=== PATIENT | female | born 1970 | race Caucasian/White ===

== ENCOUNTER 2017-12-30 06:10 | Observation (INO) ==
[2017-12-30 06:48] LABS: Basophils # 0.1 K/mcL (0.0-0.2); Basophils % 1.3 %; Eosinophils # 0.3 K/mcL (0.0-0.6); Eosinophils % 4.2 %; Hematocrit 39.7 % (35.3-44.9); Hemoglobin 13.2 g/dL (11.5-15.4); Immature Granulocytes % 0.3 % (0-4); Lymphocytes # 1.8 K/mcL (0.6-4.6); Lymphocytes % 30.6 %; Mean Corpuscular HGB Conc 33.2 g/dL (31.6-35.5); Mean Corpuscular Hemoglobin 31.8 pg (28.0-33.3); Mean Corpuscular Volume 95.7 fL (83.0-100.0); Mean Platelet Volume 9.1 fL (9.4-12.4); Monocytes # 0.6 K/mcL (0.0-1.3); Monocytes % 9.4 %; Neutrophils # 3.2 K/mcL (1.6-8.9); Platelet Count 219 K/mcL (140-400); Red Blood Count 4.15 M/mcL (3.82-4.97); Red Cell Distribution Width 12.7 % (11.5-14.5); Segmented Neutrophils % 54.2 %
[2017-12-30 06:58] LABS: INR 0.9; Prothrombin Time 10.1 Seconds (9.4-12.1)
[2017-12-30 07:01] LABS: Activated Partial Thrombo Time 28.8 Seconds (26.0-36.0)
[2017-12-30] MEDS ORDERED: Aspirin 81 MG TAB.CHEW PO ONE (07:02)
[2017-12-30] MEDS ORDERED: Nitroglycerin 0.4 MG TAB.SUBL SL PRN ×2 (07:02→10:28)
[2017-12-30 07:12] LABS: Troponin I < 0.03 ng/mL (< 0.04)
[2017-12-30 07:13] LABS: BUN/Creatinine Ratio 25 (6-26); Blood Urea Nitrogen 21 mg/dL (6-20); Calcium 8.7 mg/dL (8.6-10.3); Carbon Dioxide 22 mEq/L (23-29); Chloride 115 mEq/L (98-107); Glucose 110 mg/dL (70-105); Osmolality,Calculated 296 (280-300); Potassium 3.8 mEq/L (3.5-5.1); Sodium 141 mEq/L (136-145); eGFR For African Americans > 60 (> 60); eGFR For Non-African Americans > 60 (> 60)
--- NOTE | 2017-12-30 07:27 | Emergency Department Note ---
START Narrative - START START: I examined this patient and my medical decision-making was reviewed with the Resident Physician. I agree with the documented findings, disposition and treatment plan as described except to the extent set forth below. 47-year-old female presented to the emergency room for chest pain that woke her up from sleep about 2 hours ago. [place] slightly dizzy. Positive smoking. Labs thus far negative. She has no cough or sputum production. Chest x-ray shows possible atelectasis in the left lung base. She has no pneumonia symptoms. Plan to recheck a second enzyme. We will give option of admission for observation. EKG unremarkable
--- NOTE | 2017-12-30 07:40 | Emergency Department Note ---
Disposition Clinical Impression: Chest pain Qualifiers: Chest pain type: unspecified Qualified Code(s): R07.9 - Chest pain, unspecified Disposition: Admitted As Inpatient Condition: Good Referrals: Biju Arana MD [Primary Care Provider] - Forms: ED Satisfaction Letter Time of Disposition: 08:08 General Adult HPI - General Chief complaint: ED Chest Pain Stated complaint: cp/sob/dizzy Time Seen by Provider: 12/30/17 07:02 Source: patient, family Mode of arrival: ambulatory Limitations: no limitations Nursing Notes Reviewed: Yes Vital Signs Reviewed: Yes - History of Present Illness HPI Narrative: 47-year-old female with past medical history of migraines presenting to the emergency Department chief complaint of chest pain. Patient states approximately 3 hours ago she had substernal chest pain that radiated up her neck and into her left arm. It made her diaphoretic but denies nausea or vomiting. Patient has significant family history with early cardiac and her mother in her late 40s and father having an ID in his mid 50s. Patient denies having a cardiac workup in the past 10 years. She states she had a stress test approximately 15 or more years ago. Denies any following with cardiology. She denies taking anything at home for this. She denies any infectious signs or symptoms at this time. Denies fever, vomiting, diarrhea or abdominal pain. Pain Scale: 7 - Related Data Home Medications Medication Instructions Recorded Confirmed No Known Home Drugs 12/30/17 12/30/17 Allergies Allergy/AdvReac Type Severity Reaction Status Date / Time No Known Allergies Allergy Verified 12/30/17 07:34 All systems ED: reviewed and negative except as stated. Cardiovascular: Reports: chest pain Musculoskeletal: Reports: neck pain Past Medical History - Past Medical History Attestation: Yes The following information was validated with the patient. Medical history: Reports: migraine Psychiatric history: Reports: no psych history FEED HANDLER history: Reports: no FEED HANDLER history - Social History Smoking Status: Current every day smoker Smokeless Tobacco Status: No Alcohol use: Reports: rarely Drug use: Reports: none Physical Exam - General Limitations: no limitations General appearance: alert, in no apparent distress - Head Head exam: atraumatic, normocephalic, normal inspection - Eye Eye exam: Present: normal appearance. Absent: scleral icterus, conjunctival injection - ENT ENT exam: normal exam, mucous membranes moist - Neck Neck exam: Present: normal inspection, full ROM. Absent: tenderness, meningismus - Chest Chest inspection: Present: normal inspection, symmetric chest wall rise. Absent : tenderness, rash - Respiratory Respiratory exam: Present: normal lung sounds bilaterally. Absent: respiratory distress, wheezes - Cardiovascular Cardiovascular exam: Present: regular rate, normal rhythm, normal heart sounds - Abdominal Exam Abdominal exam: Present: soft, Non-Tender. Absent: distention, guarding, rebound - Extremities Exam Extremities exam: Present: normal inspection, full ROM - Neurological Exam Neurological exam: Present: alert, oriented X3 - Psychiatric Psychiatric exam: Present: normal affect, normal mood - Skin Skin exam: Present: warm, intact Course Course Narrative: 47-year-old female with no significant past medical history presenting for chest pain radiating up into her left neck. The patient has significant family history of cardiac disease. Patient also smokes and is hypertensive in the room. She states she does not have high cholesterol but also does not see a physician often. Patient is alert and oriented 3 in the room. Hypertensive but otherwise stable vital signs. We will perform a chest pain workup including troponin, chest x-ray, EKG and basic labs. Disposition pending these results. Patient agrees with this plan. - Reevaluation(s) Reevaluation #1: All patient's lab work has resulted and is within normal limits. Due to patient 's significant past medical history and history of present illness event to admit the patient at this time for chest pain workup. Patient is alert and oriented 3 and remained stable vital signs. Nitroglycerin did relieve her chest pain. Patient was given aspirin. I spoke with the admitting hospitalist Dr. Delacruz who agrees to accept the patient at this time. Patient agrees with this plan. Vital Signs Temperature 97.9 F 12/30/17 06:12 Pulse Rate 95 12/30/17 06:12 Respiratory Rate 18 12/30/17 06:12 Blood Pressure 174/92 12/30/17 06:12 O2 Sat by Pulse Oximetry 99 12/30/17 06:12 Temperature 97.9 F 12/30/17 06:12 Pulse Rate 82 12/30/17 07:28 Respiratory Rate 16 12/30/17 07:28 Blood Pressure 159/103 12/30/17 07:28 O2 Sat by Pulse Oximetry 98 12/30/17 07:28 Oxygen Delivery Oxygen Delivery Room Air Medical Decision Making - Lab Data Result diagrams: 12/30/17 06:41 12/30/17 06:41 Lab Results 12/30/17 12/30/17 12/30/17 Range/Units 06:41 06:41 06:41 WBC 6.0 (4.3-11.1) K/mcL RBC 4.15 (3.82-4.97) M/mcL Hgb 13.2 (11.5-15.4) g/dL Hct 39.7 (35.3-44.9) % MCV 95.7 (83.0-100.0) fL MCH 31.8 (28.0-33.3) pg MCHC 33.2 (31.6-35.5) g/dL RDW 12.7 (11.5-14.5) % Plt Count 219 (140-400) K/mcL MPV 9.1 L (9.4-12.4) fL Immature Gran % 0.3 (0-4) % Seg Neutrophils % 54.2 % Lymphocytes % 30.6 % Monocytes % 9.4 % Eosinophils % 4.2 % Basophils % 1.3 % Neutrophils # 3.2 (1.6-8.9) K/mcL Lymphocytes # 1.8 (0.6-4.6) K/mcL Monocytes # 0.6 (0.0-1.3) K/mcL Eosinophils # 0.3 (0.0-0.6) K/mcL Basophils # 0.1 (0.0-0.2) K/mcL PT 10.1 (9.4-12.1) Seconds INR 0.9 APTT 28.8 (26.0-36.0) Seconds Sodium 141 (136-145) mEq/L Potassium 3.8 (3.5-5.1) mEq/L Chloride 115 H (98-107) mEq/L Carbon Dioxide 22 L (23-29) mEq/L BUN 21 H (6-20) mg/dL Creatinine 0.83 (0.60-1.20) mg/dL Est GFR ( Amer) > 60 (> 60) Est GFR (Non-Af Amer) > 60 (> 60) BUN/Creatinine Ratio 25 (6-26) Glucose 110 H (70-105) mg/dL Calculated Osmolality 296 (280-300) Calcium 8.7 (8.6-10.3) mg/dL Troponin I < 0.03 (< 0.04) ng/mL - EKG Data EKG #1 EKG attestation: Yes I reviewed and interpreted this EKG. EKG results narrative: Sinus rhythm. 83 bpm. [place] interval 157, QRS 77, QTC 394. No signs of acute ST segment elevation or ischemia. Compared to previous EKG completed on 2008 no significant changes noted
[2017-12-30] MEDS ORDERED: Ondansetron 4 MG/2 ML VIAL IVP PRN (10:28)
--- NOTE | 2017-12-30 10:42 | Internal Med History&Physical ---
Date of Encounter: 12/30/17 Time of Encounter: 10:37 Assessment and Plan (1) Chest pain Current visit: Yes Status: Acute Rule out acute coronary syndrome. Currently not having any chest pain. Nitro did alleviate pain which could suggest ACS. EKG unremarkable. Heart score is 5 putting patient at intermediate risk. Cycle troponin Oxycodone SL prn pain Supplemental O2 as needed to keep O2 >94% Aspirin given in ED 2D Echocardiogram Consider Nuc stress test after cycle troponin Qualifiers: Chest pain type: unspecified Qualified Code(s): R07.9 - Chest pain, unspecified (2) Elevated blood pressure reading Current visit: Yes Status: Acute Possibly patient has essential hypertension. Could be elevated here because of pain and anxiety which she is complaining of. Will put hydralazine 10 mg q6H IV prn SBP >160 or DBP >110. (3) DVT prophylaxis Current visit: Yes Status: Acute Lovenox 40 mg Sq daily Internal Medicine - H&P: HPI History of present illness: Ms. Herzog is a 47 year old female with history of migraines presented for chest pain that woke patient up from sleep. She described as substernal with pressure sensation that radiated to her back/shoulder. She felt as if someone was sitting on her chest. Pain lasted 10-20 minutes and then subsided. She felt brief episode of shortness of breath with nausea. She denied pleuritic- type pain/sharp pain. She had palpitations with diaphoresis. Never had pain like this in the past. Pain exacerbated by anxiety and "thinking about chest pain", it was alleviated by nitro given in the ED. Patient was also given aspirin in the ED. A chest x-ray showed atelectasis vs pneuonia. She denies cough, sputum production. She is a current smoker. Family history significant in mother who had NV and in 40s and father with NV in his 50s. She had stress test 15 years ago after she was admitted for elevated BP, which she believes was negative. Past Med Surg Social Fam HX - Past Medical History Medical history: migraine Psychiatric history: no psych history - Social History Smoking Status: Current every day smoker Smokeless Tobacco Status: No Alcohol use: rarely Drug use: none Internal Medicine - H&P: Meds No Known Home Drugs 12/30/17 [History] 3 Allergy/AdvReac Type Severity Reaction Status Date / Time No Known Allergies Allergy Verified 12/30/17 07:34 All Systems PM: A 10-system review of systems was performed and is negative for pertinent findings except as documented above in the HPI. - Constitutional Constitutional: excessive sweating, no fatigue, no fever(s), no lethargy, no night sweats - EENT Eyes: no change in vision Nose, mouth and throat: no dysphagia, no nasal discharge, no neck pain, no sore throat - Cardiovascular Cardiovascular ROS IM: chest pain, diaphoresis, dyspnea (one episode), palpitations, no claudication, no dyspnea on exertion, no edema, no lightheadedness, no paroxysmal nocturnal dyspnea, no syncope - Respiratory Respiratory: no wheezing, no snoring, no stridor, no chest congestion, no excessive phlegm production, no change in phlegm color, no pain with cough - Gastrointestinal Gastrointestinal: nausea, no abdominal pain, no diarrhea, no hematemesis, no hematochezia, no melena, no vomiting - Genitourinary Genitourinary: no change in urinary stream, no dysuria, no flank pain, no hematuria - Musculoskeletal Musculoskeletal ROS IM: no numbness, no tingling - Integumentary Integumentary IM: no rash, no unusual bruising - Neurological Neurological ROS: no confusion, no convulsions, no focal weakness, no numbness, no tingling, no tremor(s) - Constitutional Vitals: Temp Pulse Resp BP Pulse Ox 97.9 F 74 18 135/88 99 12/30/17 06:12 12/30/17 09:19 12/30/17 09:19 12/30/17 09:19 12/30/17 09:19 - Head Head exam: Present: atraumatic, normocephalic - Eye Eye exam: Present: PERRL, conjuntiva pink, sclera anicteric Pupils: Present: PERRL - Neck Neck exam general surgery: Present: supple, trachea midline. Absent: lymphadenopathy - Respiratory Respiratory exam: Present: CTAB. Absent: accessory muscle use, rales, rhonchi, wheezes - Cardiovascular Cardiovascular exam: Present: RRR, +S1, +S2. Absent: diastolic murmur, gallop, rubs, systolic murmur - GI/Abdominal GI/Abdominal exam: Present: normal bowel sounds, soft, no peritoneal signs. Absent: distended, tenderness - Extremities Exam Extremities exam: Present: warm, radial pulses palpable and symmetrical. Absent : calf tenderness, cyanotic, pedal edema - Neurological Exam Neurological exam: Present: CN II-XII intact, oriented X3, no focal deficits. Absent: pronater drift, facial droop, speech deficit - Psychiatric Additional comments: tearful - Skin Skin exam: Present: dry, intact Internal Med - H&P Results - Labs CBC & Chem 7: 12/30/17 06:41 12/30/17 06:41 Labs: Short CBC 12/30/17 Range/Units 06:41 WBC 6.0 (4.3-11.1) K/mcL Hgb 13.2 (11.5-15.4) g/dL Hct 39.7 (35.3-44.9) % Plt Count 219 (140-400) K/mcL Neutrophils # 3.2 (1.6-8.9) K/mcL BMP 12/30/17 06:41 Sodium 141 Potassium 3.8 Chloride 115 H Carbon Dioxide 22 L BUN 21 H Creatinine 0.83 Glucose 110 H Calcium 8.7 Cardiac Enzymes 12/30/17 Range/Units 06:41 Troponin I < 0.03 (< 0.04) ng/mL - Impressions ITS Impressions Chest X-Ray 12/30/17 06:14 IMPRESSION: Streaky left basilar opacity, atelectasis versus pneumonia. D/ / Michoacano Mullins MD / Michoacano Mullins MD Interpreting Provider: Michoacano Mullins MD
--- NOTE | 2017-12-30 16:44 | Electrocardiograph Report ---
[place] [id number] Test Date: 2017-12-30 Pat Name: Didi Herzog Department: 104 Room: 3B13 Gender: F Telephone Claims Representative: DARNELL : 1970 Requested By: Aditya Agarwal Order Number: [id number] Reading MD: Eyal Arteaga DO Measurements Intervals [place] Rate: 83 P: 80 GA: 157 QRS: 54 QRSD: 77 T: 59 QT: 354 QTc: 394 Interpretive Statements SINUS RHYTHM Electronically Signed On 12-30-2017 16:42:17 EDT by Eyal Arteaga DO
[2017-12-30] MEDS: Nicotine 14 MG PATCH.TD24 TD SCH (18:21)
[2017-12-30 20:10] LABS: Amphetamine Screen,Urine Negative ng/mL (Cutoff=1000); Barbiturate Screen,Urine Negative ng/mL (Cutoff=200); Benzodiazepines Screen,Urine Negative ng/mL (Cutoff=200); Cannabinoid Screen,Urine Positive ng/mL (Cutoff = 50); Cocaine Screen,Urine Negative ng/mL (Cutoff= 300); Opiate Screen,Urine Negative ng/mL (Cutoff=300); Phencyclidine Screen,Urine Negative ng/mL (Cutoff=25)
[2017-12-30] MEDS: Acetaminophen 325 MG TABLET PO PRN (23:30)
[2017-12-31 05:02] LABS: BUN/Creatinine Ratio 19 (6-26); Blood Urea Nitrogen 15 mg/dL (6-20); Calcium 8.8 mg/dL (8.6-10.3); Carbon Dioxide 22 mEq/L (23-29); Chloride 110 mEq/L (98-107); Glucose 120 mg/dL (70-105); Osmolality,Calculated 286 (280-300); Potassium 3.7 mEq/L (3.5-5.1); Sodium 137 mEq/L (136-145); eGFR For African Americans > 60 (> 60); eGFR For Non-African Americans > 60 (> 60)
[2017-12-31] MEDS ORDERED: *HR* Enoxaparin 40 MG/0.4 ML SYRINGE SQ SCH (06:00)
[2017-12-31] MEDS: Nicotine 14 MG PATCH.TD24 TD SCH (10:09)
[2017-12-31] MEDS: Acetaminophen 325 MG TABLET PO PRN (11:30)
[2017-12-31 14:59] VITALS: BP 150/90
--- NOTE | 2017-12-31 15:56 | Discharge Summary ---
- NOTES TO OUTPATIENT PROVIDER Notes to Outpatient Provider: f/u with PCP within 1-2 weeks. Date of Encounter: 12/31/17 Time of Encounter: 15:53 - Discharge Diagnosis (1) Chest pain Priority: Primary Status: Acute Qualifiers: Chest pain type: unspecified Qualified Code(s): R07.9 - Chest pain, unspecified Hospital course: Ms. Herzog is a 47 year old female without CV risk factors presented with chest pain concerning ACS. She was admitted for chest pain to rule out ACS. EKG was sinus rhythm without acute ST-T changes. Troponin was negative for 3 consecutive sets. Stress test and ECHO were both normal. She will be discharged home today with f/u with PCP within 1 -2 weeks. Discharge discussed with: patient Time spent discussing smoking cessation with patient: 3 to 10 minutes - Time Spent with Patient Total time spent providing and/or coordinating discharge services: Less than 30 minutes - Discharge Medications Home Medications: No Known Home Drugs 12/30/17 [History] Allergies/Adverse Reactions: 3 Allergy/AdvReac Type Severity Reaction Status Date / Time No Known Allergies Allergy Verified 12/30/17 07:34 Date of admission: 12/30/17 11:47 Primary care physician: Biju Arana MD Anticipated date of discharge: 12/31/17 - Constitutional Vitals: Temp Pulse Resp BP Pulse Ox 98.1 F 96 15 150/90 100 12/31/17 14:58 12/31/17 14:58 12/31/17 14:58 12/31/17 14:58 12/31/17 14:58 General appearance: Present: A&O X 3 - Head Head exam: Present: atraumatic, normocephalic - Respiratory Respiratory exam: Present: CTAB. Absent: accessory muscle use, rales, rhonchi, wheezes - Cardiovascular Cardiovascular exam: Present: RRR, +S1, +S2. Absent: diastolic murmur, gallop, rubs, systolic murmur - GI/Abdominal GI/Abdominal exam: Present: normal bowel sounds, soft, no peritoneal signs. Absent: distended, tenderness - Neurological Exam Neurological exam: Present: CN II-XII intact, oriented X3, no focal deficits. Absent: pronater drift, facial droop, speech deficit - Patient Status Disposition: Home, Self-Care Condition: Good Functional capacity at discharge: independent ambulation Overall status at discharge: patient is back to baseline - Discharge Instructions Follow Up With: Biju Arana MD [Primary Care Provider] - - Diet and Activity Activity: increase activity as tolerated Diet: advance to your usual diet
== END 2017-12-31 16:40 | disposition home or self-care (01) ==
LOC: EMEROO 06:10 → 3BNU 06:10
PROVIDERS: ADMIT Student in an Organized Health Care Education/Training Program; ATTEND Registered Nurse